=== PATIENT | male | born 1950 | race Hispanic/Latino ===

== ENCOUNTER 2019-10-11 06:48 | Day surgery (SDC) | payer MEDICARE ==
[2019-10-11] MEDS ORDERED: ceFAZolin/STERILE WATER 2 GM/20 ML SYRINGE IV NR (07:45)
[2019-10-11] MEDS ORDERED: SODIUM CHLORIDE 0.9% 1000 ML 1,000 ML ONE (07:53)
[2019-10-11] MEDS ORDERED: SCOPOLAMINE TRANSDERMAL PATCH 72 HR TD NR (08:02)
[2019-10-11] MEDS ORDERED: SODIUM CHLORIDE 0.9% 1000 ML 1,000 ML IV SCH (08:15)
[2019-10-11] MEDS ORDERED: LIDOCAINE MPF (2%) 20 MG/1 ML VIAL 5 ML ONE (08:19)
[2019-10-11] MEDS ORDERED: PROPOFOL 200 MG/20 ML VIAL IV ONE ×2 (08:20→09:53)
[2019-10-11] MEDS ORDERED: fentaNYL 100 MCG/2 ML INJ ONE (08:20)
--- NOTE | 2019-10-11 09:09 | Post Operative Note ---
Pre-op diagnosis: caro Post-op diagnosis: same Findings: trilobar hypertrophy Procedure: caro trilobar hypertrophy cysto rezum Anesthesia: GETA Surgeon: BRIEN RICHARDSON Estimated blood loss: minimal Pathology: none Condition: stable Disposition: PACU
--- NOTE | 2019-10-11 09:12 | Discharge Summary ---
Short Stay Discharge Plan Activity: other (no straining ) Weight Bearing Status: Full Weight Bearing Diet: low fat, low cholesterol, low salt, other Special Instructions: other Durable Medical Equipment Needed Upon Discharge: other ([place] ) Follow up with: CRISTIAN LINO [Other] - 7 Days BRIEN RICHARDSON MD [Staff Physician] - 7 Days
--- NOTE | 2019-10-11 09:21 | Anesthesia Day of Surgery ---
Anesthesia Day of Surgery - Day of Surgery Patient Examined: Yes Patient H&P Reviewed: Yes Patient is NPO: Yes Beta Blockers: Yes Cardiac Clearance: Yes Pulmonary Clearance: No Douglas's Test: N/A
[2019-10-11] MEDS ORDERED: MIDAZOLAM 2 MG/2 ML INJ IV NR (09:25)
--- NOTE | 2019-10-11 09:26 | Anesthesia Consultation ---
Anesthesia Consult and Med Hx Date of service: 10/11/19 - Airway Anesthetic Teeth Evaluation: Good ROM Head & Neck: Adequate Mental/Hyoid Distance: Adequate Mallampati Class: Class III Intubation Access Assessment: Probably Good - Pulmonary Exam CTA: Yes - Cardiac Exam Cardiac Exam: RRR Anesthetic Concerns: hx of irregulare HR; not audible this am - Pre-Operative Health Status ASA Pre-Surgery Classification: ASA2 Proposed Anesthetic Plan: General - Pulmonary Hx Smoking: No Hx Sleep Apnea: No (HOOD PRE SCREEN HIGH RISK.) - Cardiovascular System Hx Hypertension: Yes (X 40 YRS) - Endocrine Hx Non-Insulin Dependent Diabetes: Yes (bg 180 @ 0758) - Other Systems Hx Cancer: No - Additional Comments Anesthesia Medical History Comments: severe PONV
[2019-10-11] MEDS ORDERED: MIDAZOLAM 2 MG/2 ML INJ ONE (09:28)
[2019-10-11] MEDS ORDERED: HYDROmorphone 1 MG/1 ML INJ ONE (09:55)
[2019-10-11] MEDS ORDERED: dexAMETHasone 20 MG/5 ML VIAL ONE (10:00)
[2019-10-11] MEDS ORDERED: ONDANSETRON 4 MG/2 ML INJ ONE (10:00)
[2019-10-11] MEDS ORDERED: SUCCINYLCHOLINE CHLORIDE 200 MG/10 ML INJ MDV ONE (10:00)
--- NOTE | 2019-10-11 10:49 | Operative Report ---
PREOPERATIVE DIAGNOSIS: Large prostate, high IPSS score of 30, bladder outlet obstruction. POSTOPERATIVE DIAGNOSIS: Large prostate, high IPSS score of 30, bladder outlet obstruction. PROCEDURE: Cystoscopy, Rezum therapy. SURGEON: Dr. Miller. ANESTHESIA: General. FINDINGS: This is a gentleman with a significant bladder outlet obstruction, significant symptoms, and now presents for Rezum therapy. All the risks and implications discussed. DESCRIPTION OF PROCEDURE: The patient was brought to the operating room and placed on the operating table. Following induction of anesthesia, placed in lithotomy position, prepped and draped in usual sterile fashion. Cystourethroscopy showed trilobar hypertrophy with a median bar. At this point, the Rezum was easily placed and we did 2 sticks on the right and 2 on the left and one in the median bar just off center. The patient tolerated the procedure well. We were careful to see our landmarks of the bladder neck and the verumontanum. No significant complications. The 20-[place] coude easily passed in, brought to recovery, and family notified in stable condition. JOB# [id number] MARLENE/CHARANJIT
[2019-10-11 11:19] VITALS: BP 116/61
== END 2019-10-11 06:49 | disposition home or self-care (01) ==
LOC: OR 06:48
PROVIDERS: ATTEND Urology
DX: N40.1 Benign prostatic hyperplasia with lower urinary tract symptoms (principal); N32.0 Bladder-neck obstruction; E78.00 Pure hypercholesterolemia, unspecified; I10 Essential (primary) hypertension; E11.9 Type 2 diabetes mellitus without complications; F41.9 Anxiety disorder, unspecified; Z79.84 Long term (current) use of oral hypoglycemic drugs; Z79.899 Other long term (current) drug therapy; Z87.440 Personal history of urinary (tract) infections; Z98.890 Other specified postprocedural states
CPT/HCPCS: 53854; 82962; J0690; J1170; J2250; J2704; J3010; J7030; J0330; J1100; J2405